=== PATIENT | female | born 1970 | race Caucasian/White ===

== ENCOUNTER 2017-12-25 14:23 | Emergency (ER) | payer MEDICAID, OTHER ==
[~2017-12-25] VITALS: Ht 167.6 cm; Wt 110.0 kg
[2017-12-25 14:45] VITALS: BP 159/126
[2017-12-25] MEDS ORDERED: HYDROchlorothiazide 25mg tablet PO ONE (15:10)
[2017-12-25] MEDS ORDERED: HYDR25TA4 PO (15:22)
[2017-12-25] MEDS ORDERED: MUPI22OI30 TOP (16:01)
== END 2017-12-25 16:13 | disposition home or self-care (01) ==
LOC: ER 14:24
DX: L23.9 Allergic contact dermatitis, unspecified cause (principal); I10 Essential (primary) hypertension; F15.90 Other stimulant use, unspecified, uncomplicated
CPT/HCPCS: 99283

== ENCOUNTER 2019-05-13 20:04 | Emergency (ER) | payer MEDICAID ==
[~2019-05-13] VITALS: Ht 167.6 cm; Wt 102.6 kg
[~2019-05-13 20:04] MED LIST: HYDR25TA4 PO
[2019-05-13 20:45] LABS: EOSINOPHILS % (AUTO) 0.1 % (0-6); LYMPHOCYTES # (AUTO) 0.9 X10'3 (1.1-4.8); MONOCYTES # (AUTO) 0.2 X10'3 (0-0.9); WHITE BLOOD COUNT 9.6 X10'3 (4.5-11.0)
[2019-05-13 20:47] LABS: BASOPHILS % (AUTO) 0.5 % (0-1); HEMATOCRIT 51.6 % (35.0-45.0); MEAN CORPUSCULAR VOLUME 85.8 FL (78-98); MEAN PLATELET VOLUME 9.3 FL (7.4-10.4); MONOCYTES % (AUTO) 2.4 % (2-12); NEUTROPHILS # (AUTO) 8.5 X10'3 (1.8-7.7); PLATELET COUNT 337 X10'3 (140-440); RED BLOOD COUNT 6.02 X10'6 (4.20-5.60); RED CELL DISTRIBUTION WIDTH 13.6 % (11.5-14.5)
[2019-05-13 20:50] LABS: HEMOGLOBIN 18.1 g/dl (12.0-16.0)
[2019-05-13 21:01] LABS: ALANINE AMINOTRANSFERASE 30 U/L (12-78); ALBUMIN 4.1 G/DL (3.4-5.0); ALBUMIN/GLOBULIN RATIO 1.2 (1.1-1.5); ALKALINE PHOSPHATASE 102 IU/L (46-116); ANION GAP 12 (8-16); ASPARTATE AMINO TRANSFERASE 13 U/L (10-37); BILIRUBIN,TOTAL 0.9 MG/DL (0.1-1.0); BLOOD UREA NITROGEN 16 MG/DL (7-18); BUN/CREATININE RATIO 19.8 (6.6-38.0); CALCIUM 8.9 MG/DL (8.5-10.1); CHLORIDE 104 MMOL/L (99-107); CREATININE 0.81 MG/DL (0.40-0.90); GLUCOSE 133 MG/DL (70-104); LIPASE 64 U/L (73-393); POTASSIUM 3.8 MMOL/L (3.5-5.1); SODIUM 143 MMOL/L (135-145); TOTAL CARBON DIOXIDE 27.3 MMOL/L (24-32); TOTAL PROTEIN 7.6 G/DL (6.4-8.2); eGFR 75 ML/MIN
[2019-05-13] MEDS ORDERED: LORazepam 2 mg/ml vial IV ONE (21:10)
[2019-05-13] MEDS ORDERED: normal saline 1000ML IV soln IVB ONE ×2 (21:10→22:40)
[2019-05-13] MEDS ORDERED: ondansetron/PF 4mg/2ml inj IV ONE (21:10)
[2019-05-13] MEDS ORDERED: haloperidol lactate 5mg/ml inj IM ONE (21:10)
[2019-05-13 21:56] LABS: URINE HCG NEGATIVE (NEG)
[2019-05-13 21:59] LABS: CLARITY,URINE CLEAR (Clear); COLOR,URINE YELLOW (Yellow); GLUCOSE, URINE NEGATIVE (Neg); KETONES,URINE >=80 mg/dl (Neg); LEUKOCYTE ESTERASE ,URINE NEGATIVE (Neg); NITRITES, URINE NEGATIVE (Neg); OCCULT BLOOD,URINE TRACE-INTACT (Neg); PROTEIN,URINE 30 mg/dl (Neg)
[2019-05-13 22:05] LABS: UA COLLECTION TYPE STRAIGHT CATH
[2019-05-13 22:07] LABS: BACTERIA,URINE FEW /HPF (Neg); MUCUS STRANDS MODERATE /LPF (Neg); RBC,URINE 0-2 /HPF (0-2); SQUAMOUS EPITHELIAL CELL,UR MODERATE /LPF (FEW); WBC,URINE 0-4 /HPF (0-4)
[2019-05-13] MEDS ORDERED: hydrALAZINE 20mg/ml inj. IV ONE ×2 (23:00→23:50)
[2019-05-13] MEDS ORDERED: LISI-604 PO (23:21)
[2019-05-14] MEDS ORDERED: hyDRALAzine 10mg tablet PO SCH (00:10)
[2019-05-14] MEDS ORDERED: lisinopril 10 MG tablet PO ONE (00:10)
--- NOTE | 2019-05-14 00:29 | NUR ---
pt up to the bathroom. Pt states she last used methamphetamine 1 week ago. HR 130s. Pt states "My heartrate is always high like that."
[2019-05-14 02:01] LABS: URINE AMPHETAMINE SCREEN NEGATIVE (Neg); URINE BARBITUATE SCREEN NEGATIVE (Neg); URINE BENZODIAZEPINES SCREEN NEGATIVE (Neg); URINE CANNABINOID SCREEN POSITIVE (Neg); URINE COCAINE SCREEN NEGATIVE (Neg); URINE METHADONE SCREEN NEGATIVE (Neg); URINE OPIATE SCREEN NEGATIVE (Neg); URINE PHENCYCLIDINE SCREEN NEGATIVE (Neg)
[2019-05-14] MEDS ORDERED: ONDA4TAB6 PO (02:07)
[2019-05-14] MEDS ORDERED: normal saline 1000ML IV soln IVB ONE (02:20)
[2019-05-14] MEDS: metoprolol tartrate 1mg/ml inj IV SCH ×3 (02:24→03:23)
[2019-05-14] MEDS ORDERED: hyDRALAzine 10mg tablet PO STA (03:27)
[2019-05-14 04:04] VITALS: BP 165/108
== END 2019-05-14 04:06 | disposition home or self-care (01) ==
LOC: ER 20:05
DX: R11.15 Cyclical vomiting syndrome unrelated to migraine (principal); R11.2 Nausea with vomiting, unspecified; R10.84 Generalized abdominal pain; I10 Essential (primary) hypertension; F12.90 Cannabis use, unspecified, uncomplicated; F15.90 Other stimulant use, unspecified, uncomplicated; Z98.51 Tubal ligation status; Z79.899 Other long term (current) drug therapy
CPT/HCPCS: 80053; 80305; 81001; 81025; 83690; 85025; 87088; 93005; 96361; 96372; 96374; 96375; 96376; 99284; J0360; J1630; J2060; J2405; J7030; J3490